=== PATIENT | female | born 2005 | race Caucasian/White ===

== ENCOUNTER 2023-05-04 18:35 | Emergency (ER) | payer MEDICAID | END 2023-05-04 22:14 | disposition home or self-care (01) | LOC: CSHERS 18:35 | DX: O20.0 Threatened abortion (principal); O99.331 Smoking (tobacco) complicating pregnancy, first trimester; F17.290 Nicotine dependence, other tobacco product, uncomplicated; Z3A.01 Less than 8 weeks gestation of pregnancy | CPT/HCPCS: 76856 ==

== ENCOUNTER 2023-10-18 15:52 | Day surgery (SDC) | payer MEDICAID, OTHER ==
[2023-10-18 16:39] VITALS: BMI 30.2
[2023-10-18] MEDS ORDERED: hydrALAZINE 20 MG/ML VIAL SLOW IVP PRN (16:44)
== END 2023-10-18 17:28 | disposition home or self-care (01) ==
LOC: CSHLD/OP 15:52
PROVIDERS: ATTEND Family Medicine
DX: O36.8130 Decreased fetal movements, third trimester, not applicable or unspecified (principal); Z3A.29 29 weeks gestation of pregnancy

== ENCOUNTER 2023-10-24 21:00 | Inpatient (IN) | payer OTHER ==
[2023-10-24] MEDS ORDERED: hydrALAZINE 20 MG/ML VIAL SLOW IVP PRN (21:36)
[2023-10-24] MEDS ORDERED: Lactated Ringer's 1,000 ML IV SCH (22:30)
[2023-10-24 22:42] LABS: #Eosinphils 0.1 10x3/uL (0.0-0.5); #Monocytes 1.2 10x3/uL (0.0-1.1); #Neutrophils 10.9 10x3/uL (1.5-8.4); %Basophils 0.3 % (0.0-2.0); %Eosinophils 0.7 % (0.0-6.0); %Lymphocytes 9.7 % (18.0-47.0); %Monocytes 8.6 % (0.0-10.0); %Neutrophils 80.1 % (40.0-75.0); Hematocrit 43.7 % (34.9-44.5); Hemoglobin 15.3 g/dL (12.0-15.5); Mean Corpuscular Hemoglobin 30.5 pg (27.0-33.0); Mean Corpuscular Volume 87.2 fl (81.6-98.3); Mean Platelet Volume 11.1 fl (7.4-10.4); Platelet Count 172 10x3/uL (150-450); RBC Distribution Width 14.4 % (11.5-14.5); Red Blood Cell (RBC) Count 5.01 10x6/uL (3.90-5.03); White Blood Cell (WBC) Count 13.7 10x3/uL (3.5-10.5)
[2023-10-24 22:48] LABS: Bilirubin Neg (Negative); Blood, Urine 50 (Negative); Clarity Slightly Cloudy (Clear); Glucose, Urine (Dipstick) Normal (Negative); Ketone, Urine 50 mg/dL (Negative); Leukocyte 25 (Negative); Nitrite Negative (Negative); Protein, Urine (Dipstick) 15 mg/dl (Neg-Trace); Specific Gravity, Urine 1.015 (1.005-1.030); Urobilinogen Normal mg/dL (Less than 2)
[2023-10-24 22:59] LABS: ALT (SGPT) 21 U/L (8-55); AST (SGOT) 23 U/L (5-34); Alkaline Phosphatase 129 U/L (40-100); Anion Gap 16 mmol/L (10-20); BUN (Urea Nitrogen) 8 mg/dL (7.0-18.7); Bilirubin, Total 0.4 mg/dL (0.2-1.2); Calc. Creatinine Clearance 0 mL/min (70-130); Calcium 9.2 mg/dL (7.8-10.44); Carbon Dioxide 22 mmol/L (22-29); Chloride 105 mmol/L (98-107); Estimated GFR 127; Glucose 73 mg/dL (70-105); Potassium 3.5 mmol/L (3.5-5.1); Sodium 139 mmol/L (136-145)
[2023-10-24 22:59] LABS: Bacteria/HPF Rare-Few HPF (None Seen); CAUTI Indications for Culture Pregnancy; Squamous Epithelial 0-3 HPF (0-3); Urine Culture Reflex Yes Yes; WBC/HPF 0-3 HPF (0-3)
[2023-10-24 23:06] LABS: FFN Internal QC Analyzer PASS (PASS); FFN Internal QC Cassette PASS (PASS); Fetal Fibronectin Negative (Negative)
[2023-10-24 23:08] VITALS: BMI 31.5
[2023-10-24] MEDS ORDERED: cefTRIAXone\\ROCEPHIN 1 GM in Sodium Chloride 0.9% 100 ML IVPB SCH (23:45)
[2023-10-25] MEDS ORDERED: Dextrose 5%-Lactated Ringers 1,000 ML IV SCH ×2 (01:30→03:00)
[2023-10-25] MEDS ORDERED: Acetaminophen 325 MG TAB PO PRN (02:50)
[2023-10-25 06:02] LABS: #Basophils 0.1 10x3/uL (0.0-0.2); #Eosinphils 0.3 10x3/uL (0.0-0.5); #Monocytes 1.1 10x3/uL (0.0-1.1); #Neutrophils 9.1 10x3/uL (1.5-8.4); %Basophils 0.5 % (0.0-2.0); %Eosinophils 2.1 % (0.0-6.0); %Monocytes 9.2 % (0.0-10.0); %Neutrophils 73.4 % (40.0-75.0); Hematocrit 28.5 % (34.9-44.5); Hemoglobin 9.9 g/dL (12.0-15.5); Mean Corpuscular HGB CONC 34.7 g/dL (32.0-36.0); Mean Corpuscular Hemoglobin 30.8 pg (27.0-33.0); Mean Corpuscular Volume 88.8 fl (81.6-98.3); Mean Platelet Volume 10.2 fl (7.4-10.4); Platelet Count 208 10x3/uL (150-450); RBC Distribution Width 14.5 % (11.5-14.5); Red Blood Cell (RBC) Count 3.21 10x6/uL (3.90-5.03); White Blood Cell (WBC) Count 12.4 10x3/uL (3.5-10.5)
[2023-10-25 06:27] LABS: ALT (SGPT) 14 U/L (8-55); AST (SGOT) 16 U/L (5-34); Albumin 3.1 g/dL (3.5-5.0); Alkaline Phosphatase 95 U/L (40-100); Anion Gap 14 mmol/L (10-20); BUN (Urea Nitrogen) 5 mg/dL (7.0-18.7); Bilirubin, Total 0.4 mg/dL (0.2-1.2); Calc. Creatinine Clearance 163 mL/min (70-130); Carbon Dioxide 23 mmol/L (22-29); Chloride 106 mmol/L (98-107); Estimated GFR 129; Globulin 2.5 g/dL (2.4-3.5); Glucose 133 mg/dL (70-105); Potassium 3.3 mmol/L (3.5-5.1); Protein, Total 5.6 g/dL (6.0-8.3); Sodium 140 mmol/L (136-145)
[2023-10-25] MEDS ORDERED: Lactated Ringer's 1,000 ML IV SCH (12:00)
[2023-10-25] MEDS ORDERED: cefTRIAXone\\ROCEPHIN 1 GM in Sodium Chloride 0.9% 100 ML IVPB SCH (23:30)
== END 2023-10-25 15:40 | disposition short-term general hospital (02) | DRG 832 ==
LOC: CSHLD/OP 21:00 → CSHLD 10-25 11:16
PROVIDERS: ADMIT Family Medicine; ATTEND Family Medicine
DX: O23.43 Unspecified infection of urinary tract in pregnancy, third trimester (principal); N13.6 Pyonephrosis; O99.891 Other specified diseases and conditions complicating pregnancy; R10.9 Unspecified abdominal pain; Z3A.30 30 weeks gestation of pregnancy; R31.9 Hematuria, unspecified; D72.829 Elevated white blood cell count, unspecified; E86.0 Dehydration; O47.9 False labor, unspecified
CPT/HCPCS: 36415; 76770; 76819; 80053; 81001; 82731; 85025; 87086; J0696; J3490

== ENCOUNTER 2023-11-17 20:40 | Day surgery (SDC) | payer OTHER ==
[2023-11-17 21:28] VITALS: BMI 32.3
[2023-11-17] MEDS ORDERED: hydrALAZINE 20 MG/ML VIAL SLOW IVP PRN (22:02)
[2023-11-17 22:12] LABS: Bilirubin Neg (Negative); Blood, Urine Negative (Negative); Clarity Clear (Clear); Glucose, Urine (Dipstick) Normal (Negative); Ketone, Urine Negative (Negative); Leukocyte Negative (Negative); Nitrite Negative (Negative); Protein, Urine (Dipstick) 15 mg/dl (Neg-Trace); Specific Gravity, Urine 1.015 (1.005-1.030); Urobilinogen Normal mg/dL (Less than 2); pH, Urine 6.5 (5.0-9.0)
[2023-11-17] MEDS: Ondansetron ODT 4 MG TAB SL SCH (22:21)
[2023-11-17 22:49] LABS: Bacteria/HPF None Seen HPF (None Seen); CAUTI Indications for Culture Pregnancy; RBC/HPF None Seen HPF (0-3); Squamous Epithelial 0-3 HPF (0-3); WBC/HPF 0-3 HPF (0-3)
[2023-11-17 22:50] LABS: Urine Culture Reflex Yes Yes
== END 2023-11-18 01:20 | disposition home or self-care (01) ==
LOC: CSHLD/OP 20:40
PROVIDERS: ATTEND Family Medicine
DX: O47.03 False labor before 37 completed weeks of gestation, third trimester (principal); Z3A.33 33 weeks gestation of pregnancy; Z79.899 Other long term (current) drug therapy
CPT/HCPCS: 81001; 87086; 99283; Q0162

== ENCOUNTER 2023-12-14 19:10 | Day surgery (SDC) | payer OTHER ==
[2023-12-14 19:46] LABS: Hemoglobin 12.4 g/dL (12.0-15.5); Mean Corpuscular HGB CONC 34.4 g/dL (32.0-36.0); Mean Platelet Volume 12.3 fl (7.4-10.4); Platelet Count 178 10x3/uL (150-450); RBC Distribution Width 14.9 % (11.5-14.5); White Blood Cell (WBC) Count 12.8 10x3/uL (3.5-10.5)
[2023-12-14 19:48] LABS: MDiff Complete? YES
[2023-12-14 20:01] LABS: ALT (SGPT) 26 U/L (8-55); AST (SGOT) 24 U/L (5-34); Albumin 3.6 g/dL (3.5-5.0); Alkaline Phosphatase 187 U/L (40-100); Anion Gap 13 mmol/L (10-20); BUN (Urea Nitrogen) 11 mg/dL (7.0-18.7); Bilirubin, Total 0.2 mg/dL (0.2-1.2); Calc. Creatinine Clearance 0 mL/min (70-130); Calcium 9.2 mg/dL (7.8-10.44); Carbon Dioxide 21 mmol/L (22-29); Chloride 107 mmol/L (98-107); Estimated GFR 128; Globulin 3.1 g/dL (2.4-3.5); Glucose 74 mg/dL (70-105); Magnesium 1.8 mg/dL (1.7-2.2); Potassium 4.4 mmol/L (3.5-5.1); Protein, Total 6.7 g/dL (6.0-8.3); Sodium 137 mmol/L (136-145)
[2023-12-14 20:08] LABS: Platelet Adequacy Comment Appears Adequate; RBC Morph Comment Within Normal Limits
[2023-12-14 20:10] LABS: Band 6 % (5-11); Eosinophils 2 % (0-10); Lymphocytes 20 % (28-48); Monocytes 12 % (0-4); Neutrophil 60 % (31-61)
[2023-12-14 20:26] VITALS: BMI 34.5
[2023-12-14 20:35] LABS: Fetal Membranes Rupture No Membranes Rupture (No Rupture)
[2023-12-14 21:50] LABS: Bilirubin Neg (Negative); Blood, Urine Negative (Negative); Clarity Clear (Clear); Glucose, Urine (Dipstick) Normal (Negative); Ketone, Urine Negative (Negative); Leukocyte Negative (Negative); Nitrite Negative (Negative); Protein, Urine (Dipstick) Negative (Neg-Trace); Urobilinogen Normal mg/dL (Less than 2)
[2023-12-14 21:58] LABS: Bacteria/HPF None Seen HPF (None Seen); RBC/HPF None Seen HPF (0-3); Squamous Epithelial None Seen HPF (0-3); WBC/HPF None Seen HPF (0-3)
[2023-12-14] MEDS ORDERED: hydrALAZINE 20 MG/ML VIAL SLOW IVP PRN (22:55)
== END 2023-12-14 23:10 | disposition home or self-care (01) ==
LOC: CSHERS 19:10 → CSHLD/OP 19:51
PROVIDERS: ATTEND Family Medicine
DX: O99.891 Other specified diseases and conditions complicating pregnancy (principal); M79.605 Pain in left leg; O47.1 False labor at or after 37 completed weeks of gestation; O99.013 Anemia complicating pregnancy, third trimester; O36.63X0 Maternal care for excessive fetal growth, third trimester, not applicable or unspecified; Q76.49 Other congenital malformations of spine, not associated with scoliosis; Z3A.37 37 weeks gestation of pregnancy; Z79.899 Other long term (current) drug therapy
CPT/HCPCS: 36415; 80053; 81001; 83735; 84112; 85025; 99284

== ENCOUNTER 2023-12-20 16:54 | Day surgery (SDC) | payer OTHER ==
[2023-12-20 17:19] VITALS: BMI 35.3
== END 2023-12-20 19:05 | disposition home or self-care (01) ==
LOC: CSHLD/OP 16:54
PROVIDERS: ATTEND Family Medicine
DX: O47.1 False labor at or after 37 completed weeks of gestation (principal); O36.8130 Decreased fetal movements, third trimester, not applicable or unspecified; O34.211 Maternal care for low transverse scar from previous cesarean delivery; Z79.899 Other long term (current) drug therapy; Z3A.38 38 weeks gestation of pregnancy

== ENCOUNTER 2023-12-24 05:40 | Inpatient (IN) | payer OTHER ==
[2023-12-23 14:03] LABS: Hematocrit 35.1 % (34.9-44.5); Hemoglobin 12.3 g/dL (12.0-15.5); Platelet Count 178 10x3/uL (150-450)
[2023-12-23 14:46] LABS: Syphilis Antibody Nonreactive (Nonreactive); Syphilis Antibody Index 0.04 S/CO (<1.00 Non-Reactive)
[2023-12-23 14:48] LABS: HBSAg Index 0.23 S/CO (0-0.99); Hep B Surf Ag Non-Reactive S/CO (NonReactive)
[2023-12-24] MEDS ORDERED: Promethazine HCl 25 MG/ML VIAL IM PRN ×3 (06:06→12:45)
[2023-12-24] MEDS ORDERED: Oxytocin 30 units/NS 500 ML 500 ML IV SCH ×2 (06:06→12:45)
[2023-12-24] MEDS ORDERED: Methylergonovine 0.2 MG/ML VIAL IM PRN (06:06)
[2023-12-24] MEDS ORDERED: CEFAZOLIN 2 GM in Sodium Chloride 0.9% 100 ML IVPB SCH (06:06)
[2023-12-24] MEDS ORDERED: Lactated Ringer's 1,000 ML IV SCH (06:06)
[2023-12-24] MEDS ORDERED: hydrALAZINE 20 MG/ML VIAL SLOW IVP PRN ×2 (06:06→12:45)
[2023-12-24] MEDS ORDERED: Ondansetron PF 4 MG/2 ML Vial IVP PRN ×3 (06:06→11:10)
[2023-12-24] MEDS ORDERED: Misoprostol 200 MCG TAB PR PRN (06:06)
[2023-12-24] MEDS ORDERED: Famotidine/PF 20 mg/2ml Vial SLOW IVP PRN (06:06)
[2023-12-24] MEDS ORDERED: Tranexamic Acid 1,000 MG/10 ML VIAL IVP PRN (06:06)
[2023-12-24] MEDS ORDERED: Diphenoxylate HCl/Atropine Tablet PO PRN (06:06)
[2023-12-24] MEDS ORDERED: Carboprost 250 MCG/ML AMP IM PRN (06:06)
[2023-12-24] MEDS ORDERED: Bicitra 30 ML UDCUP PO PRN (06:06)
[2023-12-24 06:08] VITALS: BMI 35.3
[2023-12-24] MEDS ORDERED: Naloxone HCl 0.4 mg/ml Vial IV PRN (11:10)
[2023-12-24] MEDS ORDERED: Promethazine HCl 25 MG SUPP PR PRN (11:10)
[2023-12-24] MEDS ORDERED: fentaNYL 50 mcg/mL 1 mL Vial SLOW IVP PRN (11:10)
[2023-12-24] MEDS ORDERED: Meperidine HCl/PF 25 MG (1 mL) VIAL SLOW IVP PRN (11:10)
[2023-12-24] MEDS ORDERED: Moisturizing Cream (Eucerin) 113 GM JAR TOP PRN (11:10)
[2023-12-24] MEDS ORDERED: Naloxone HCl 0.4 mg/ml Vial IVP PRN ×2 (11:10)
[2023-12-24] MEDS ORDERED: HYDROmorphone 0.5 MG/0.5 ML SYRINGE SLOW IVP PRN (11:10)
[2023-12-24] MEDS ORDERED: Communication Order-Pharmacy FS SCH (11:15)
[2023-12-24] MEDS: Ketorolac Tromethamine 30 MG (1 mL) VIAL IVP SCH (12:15)
[2023-12-24] MEDS ORDERED: diphenhydrAMINE 25 MG CAP PO PRN (12:45)
[2023-12-24] MEDS ORDERED: Bisacodyl 10 MG SUPP PR PRN (12:45)
[2023-12-24] MEDS ORDERED: Lanolin Ointment 7 GM TUBE TOP PRN (12:45)
[2023-12-24] MEDS: fentaNYL 50 mcg/mL 1 mL Vial ONE (13:48)
[2023-12-24] MEDS: Phytonadione Neonatal 1 MG/0.5 ML AMP ONE (13:48)
[2023-12-24] MEDS: Erythromycin Base 0.5% Oint 1 GM TUBE ONE (13:48)
[2023-12-24] MEDS: Morphine PF 10 MG/10 ML VIAL ONE (13:49)
[2023-12-24] MEDS: Phenylephrine 40 MG/NS 250 ML 250 ML ONE (13:49)
[2023-12-24] MEDS: Oxytocin 10 UNITS/ML VIAL ONE (13:49)
[2023-12-24] MEDS: Measles/Mumps/Rubella 10 MCG/0.5 ML VIAL SC ONE (13:50)
[2023-12-24] MEDS: Boostrix 0.5 ML (Tdap) VIAL (>/=7 yrs of age) IM ONE (13:50)
[2023-12-24] MEDS: Ondansetron PF 4 MG/2 ML Vial IVP PRN (15:26)
[2023-12-24] MEDS: HYDROmorphone 0.5 MG/0.5 ML SYRINGE SLOW IVP PRN (15:28)
[2023-12-24] MEDS: Albuterol 2.5 MG (3 mL) NEB NEB PRN (17:06)
[2023-12-24] MEDS: Ibuprofen 800 MG TAB PO SCH (17:54)
[2023-12-24] MEDS: Ketorolac Tromethamine 30 MG (1 mL) VIAL IVP PRN (17:55)
[2023-12-24] MEDS: Ferrous Sulfate 325 MG TAB PO SCH (19:32)
[2023-12-24] MEDS: Acetaminophen 325 MG TAB PO PRN (21:53)
[2023-12-24] MEDS: Docusate 100 MG CAP PO SCH (21:54)
[2023-12-25] MEDS: HYDROcodone/Acetaminophen 5/325 mg Tablet PO PRN (00:16)
[2023-12-25] MEDS: diphenhydrAMINE 50 MG/ML VIAL IVP PRN (00:55)
[2023-12-25 03:39] LABS: Hematocrit 28.3 % (34.9-44.5); Hemoglobin 9.7 g/dL (12.0-15.5); Mean Corpuscular HGB CONC 34.3 g/dL (32.0-36.0); Mean Corpuscular Hemoglobin 31.1 pg (27.0-33.0); Mean Corpuscular Volume 90.7 fl (81.6-98.3); Mean Platelet Volume 11.5 fl (7.4-10.4); Platelet Count 147 10x3/uL (150-450); RBC Distribution Width 14.9 % (11.5-14.5); Red Blood Cell (RBC) Count 3.12 10x6/uL (3.90-5.03); White Blood Cell (WBC) Count 12.3 10x3/uL (3.5-10.5)
[2023-12-25] MEDS: Prenatal Vitamin 1 TAB PO SCH (08:15)
[2023-12-26] MEDS: Labetalol HCl 100 MG TAB PO SCH ×2 (09:33→23:52)
[2023-12-26 10:07] LABS: ALT (SGPT) 35 U/L (8-55); AST (SGOT) 58 U/L (5-34); Albumin 2.6 g/dL (3.5-5.0); Alkaline Phosphatase 261 U/L (40-100); Anion Gap 12 mmol/L (10-20); BUN (Urea Nitrogen) 11 mg/dL (7.0-18.7); Bilirubin, Total 0.5 mg/dL (0.2-1.2); Calc. Creatinine Clearance 165 mL/min (70-130); Calcium 8.5 mg/dL (7.8-10.44); Carbon Dioxide 27 mmol/L (22-29); Chloride 103 mmol/L (98-107); Estimated GFR 121; Globulin 3.4 g/dL (2.4-3.5); Glucose 71 mg/dL (70-105); Potassium 3.7 mmol/L (3.5-5.1); Sodium 138 mmol/L (136-145)
[2023-12-26 10:09] LABS: #Basophils 0.03 10x3/uL (0.0-0.2); #Eosinphils 0.13 10x3/uL (0.0-0.5); #Monocytes 1.34 10x3/uL (0.0-1.1); #Neutrophils 9.96 10x3/uL (1.5-8.4); %Basophils 0.2 % (0.0-2.0); %Eosinophils 0.9 % (0.0-6.0); %Lymphocytes 17.1 % (18.0-47.0); %Monocytes 9.6 % (0.0-10.0); %Neutrophils 71.6 % (40.0-75.0); Hematocrit 34.2 % (34.9-44.5); Hemoglobin 11.7 g/dL (12.0-15.5); Mean Corpuscular HGB CONC 34.2 g/dL (32.0-36.0); Mean Corpuscular Hemoglobin 31.5 pg (27.0-33.0); Mean Corpuscular Volume 92.2 fl (81.6-98.3); Mean Platelet Volume 11.8 fl (7.4-10.4); Platelet Count 191 10x3/uL (150-450); RBC Distribution Width 15.3 % (11.5-14.5); Red Blood Cell (RBC) Count 3.71 10x6/uL (3.90-5.03); White Blood Cell (WBC) Count 13.9 10x3/uL (3.5-10.5)
[2023-12-26] MEDS: HYDROcodone/Acetaminophen 5/325 mg Tablet PO PRN (12:24)
[2023-12-26 15:58] LABS: Creatinine, Urine 34.75 mg/dL (47-110); Protein, Urine Random Quant Less than 10 mg/dL (1-14)
[2023-12-26] MEDS: Simethicone Chewable 80 MG TAB PO PRN (22:27)
[2023-12-27] MEDS: Labetalol HCl 200 MG TAB PO SCH (07:59)
[2023-12-27] MEDS: Polyethylene Glycol 3350 17 GM Packet PO SCH (11:53)
[2023-12-27] MEDS ORDERED: Ondansetron ODT 4 MG TAB PO PRN (21:30)
[2023-12-28] MEDS: Polyethylene Glycol 3350 17 GM Packet PO SCH (08:45)
[2023-12-28] MEDS: Ibuprofen 800 MG TAB PO SCH (21:00)
[2023-12-29 08:33] VITALS: TEMP 98.1
[2023-12-29 18:07] VITALS: BP 123/77
== END 2023-12-29 14:55 | disposition home or self-care (01) | DRG 787 ==
LOC: CSHLD 05:40 → CSHPP 13:11
PROVIDERS: ADMIT Family Medicine; ATTEND Family Medicine
PROC: 10D00Z1 Extraction of Products of Conception, Low, Open Approach (ICD-10-PCS; principal; 2023-12-24)
PROC: 3E0P05Z Introduction of Adhesion Barrier into Female Reproductive, Open Approach (ICD-10-PCS; 2023-12-24)
DX: O13.4 Gestational [pregnancy-induced] hypertension without significant proteinuria, complicating childbirth (principal); D62 Acute posthemorrhagic anemia; Z3A.39 39 weeks gestation of pregnancy; Z37.0 Single live birth; M42.00 Juvenile osteochondrosis of spine, site unspecified; O99.892 Other specified diseases and conditions complicating childbirth; O36.63X0 Maternal care for excessive fetal growth, third trimester, not applicable or unspecified; O90.81 Anemia of the puerperium
CPT/HCPCS: 36415; 51702; 80053; 82570; 84156; 85014; 85018; 85025; 85027; 85049; 86780; 86850; 86900; 86901; 87340; 94640; J1170; J1200; J1885; J2274; J2405; J2590; J3010; J7611